=== PATIENT | female | born 1930 | race Caucasian/White ===

== ENCOUNTER 2016-03-13 15:02 | Emergency (ER) | payer OTHER, MEDICARE ==
[~2016-03-13] VITALS: Ht 152.4 cm; Wt 115.4 kg
[~2016-03-13 15:02] MED LIST: Aspirin E.C. PO; Augmentin PO; DIOVAN160 MG PO; Diovan PO; Feosol PO; GLIPIZIDE5 MG PO; Glucophage PO; IRON INFUSION; IRON325 M1 PO; LO-DOSE ASPIRIN81 M1 PO; METFORMIN HCL500 MG PO; SIMVASTATIN40 MG PO; SINGULAIR10 MG PO; SYMBICORT60 INHALA1 IH; Singulair PO; Symbicort 80-4.5 mcg IH; VITAMIN B-12500 MC2 PO; Vicodin,Norco 5/325 PO; Vitamin B-12 PO; Zocor PO
[2016-03-13 16:57] VITALS: BP 131/69
== END 2016-03-13 17:00 | disposition home or self-care (01) ==
LOC: EME 15:02
DX: T18.128A Food in esophagus causing other injury, initial encounter (principal); E11.9 Type 2 diabetes mellitus without complications; I10 Essential (primary) hypertension; Z79.84 Long term (current) use of oral hypoglycemic drugs; Z88.1 Allergy status to other antibiotic agents; Z88.2 Allergy status to sulfonamides
CPT/HCPCS: 99281; 99284